=== PATIENT | male | born 1980 | race Two or more races ===

== ENCOUNTER → 2022-06-27 | Outpatient (CLI) | payer OTHER ==
[~2022-06-27] MED LIST: AMLO5 PO; AMPDEX10CR PO; CARV6.25 PO; CRUTCH3 USE; FURO40 PO; HYDACE5 PO; IRBESARTAN300 MG PO; LISI5 PO; METF500 PO; ONDA4 PO; SPIR25 PO
== END | disposition home or self-care (01) ==
LOC: LAB 13:15 → LAB SHORT 13:15
DX: M25.562 Pain in left knee (principal)
CPT/HCPCS: 87070; 87075; 87077; 87147; 87186; 87205

== ENCOUNTER → 2022-08-19 | Outpatient (CLI) | payer OTHER | LOC: LAB 10:28 → LAB SHORT 10:28 | DX: L03.116 Cellulitis of left lower limb (principal) | CPT/HCPCS: 87070; 87075; 87205 ==